=== PATIENT | female | born 1995 | race Caucasian/White ===

== ENCOUNTER 2017-01-14 12:26 | Emergency (ER) | payer OTHER, SELFPAY ==
--- NOTE | 2017-01-14 14:00 | RAD ---
RIGHT CLAVICLE 2 VIEWS: Date: 01/14/17 HISTORY: Trauma, right-sided clavicle and shoulder pain. FINDINGS/IMPRESSION: The right clavicle is intact. POS: [id number]
== END 2017-01-14 13:00 | disposition home or self-care (01) ==
LOC: MADERS 12:26
DX: S23.420A Sprain of sternoclavicular (joint) (ligament), initial encounter (principal); S29.011A Strain of muscle and tendon of front wall of thorax, initial encounter; W19.XXXA Unspecified fall, initial encounter; Y93.72 Activity, wrestling